=== PATIENT | female | born 1965 | race Caucasian/White ===

== ENCOUNTER 2018-11-17 18:58 | Emergency (ER) | payer OTHER ==
[~2018-11-17] VITALS: Ht 154.9 cm; Wt 108.9 kg
[2018-11-17] MEDS ORDERED: METFORMIN HCL1000 MG PO (19:31)
[2018-11-17] MEDS ORDERED: LANTUS100 UNITS/ SUB-Q (19:32)
[2018-11-17] MEDS ORDERED: GLIPIZIDE10 MG PO (19:32)
[2018-11-17] MEDS ORDERED: HUMALOG100 UNITS/ IV (19:32)
[2018-11-17] MEDS ORDERED: ESTRACE2 MG PO (19:33)
[2018-11-17] MEDS ORDERED: LISINOPRIL10 MG PO (19:34)
[2018-11-17] MEDS ORDERED: LIPITOR10 MG PO (19:35)
[2018-11-17] MEDS ORDERED: ACETAMINOPHEN-1 EAC1 PO (20:15)
== END 2018-11-17 20:39 | disposition home or self-care (01) ==
LOC: ED 18:58
DX: S46.911A Strain of unspecified muscle, fascia and tendon at shoulder and upper arm level, right arm, initial encounter (principal); E11.9 Type 2 diabetes mellitus without complications; E78.00 Pure hypercholesterolemia, unspecified; Z90.710 Acquired absence of both cervix and uterus; Z87.891 Personal history of nicotine dependence; Z79.84 Long term (current) use of oral hypoglycemic drugs; Z79.899 Other long term (current) drug therapy; W19.XXXA Unspecified fall, initial encounter
CPT/HCPCS: 73030; 99283